=== PATIENT | male | born 2005 | race Caucasian/White ===

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

== ENCOUNTER 2024-08-23 09:45 | Outpatient (REF) | payer MEDICAID, SELFPAY ==
--- OUTSIDE RECORDS SUMMARY | 2024-08-23 10:54 | XMS_ITS | Encounter Summary ---
Author Organization [employer] Address [address] [facility] [facility] [address] [place] [address] Care Team Providers Care Mold Dumper Name Role Phone Suzan Rm MD Primary Care Provider [phone] Reason for Visit * Reason Comments Annual Exam Encounter Details Date Type Department Care Team (Latest Contact Info) Description 08/23/2024 9:15 AM EDT Office Visit [facility] [address], [place] [id number] Suzan Rm MD [address] [place] [address] Routine general medical examination at a health care facility (Primary Dx); Class 3 severe obesity without serious comorbidity with body mass index (BMI) of 40.0 to 44.9 in adult, unspecified obesity type; Dietary counseling; Exercise counseling; Pes planus of both feet; Generalized nonconvulsive epilepsy (CMS/HCC) Social History Tobacco Use Types Packs/Day Years Used Date Smoking Tobacco: Never Smokeless Tobacco: Never Depression Answer Date Recorded Patient Health Questionnaire-9 Score 6 06/26/2023 Patient Health Questionnaire-9 Score 6 06/26/2023 Last PHQ-9: Questionnaire Data Not on file 0 06/26/2023 Housing Stability Answer Date Recorded What is your housing situation today? I have neisha thorpe 06/16/[address] you li ve. Do you have problems with any of the following? None of the above 06/16/2023 Food Insecurity Answer Date Recorded Within the past 12 months, y ou worried that your food would run out before you got money to buy more: Never True 06/16/2023 Within the past 12 months,th e food you bought just didn't last and you didn't have enough money to get more: Never True Transportation Answer Date Recorded In the past 12 months, has l ack of transportation kept you from medical appts, meetings, work or from getting things needed for daily living? No 06/16/2023 Utilities Answer Date Recorded In the past 12 months, has t he electric, gas, oil or water company threatened to shut off services in your home? No 06/16/2023 Depression Answer Date Recorded Patient Health Questionnaire-2 Score 0 06/26/2023 Sex and Gender Information Value Date Recorded Sex Assigned at Male 01/20/2022 10:34 AM EDT Legal Sex Male 10:34 AM EDT Gender Identity Male 01/20/2022 10:34 AM EDT Sexual Orientation Choose not to disclose 2021 10:34 AM EDT documented as of this encounter Last Filed Vital Signs Vital Sign Reading Time Taken Comments Blood Pressure 123/77 08/23/2024 9:14 AM EDT Pulse 90 08/23/2024 9:14 AM EDT Temperature 36.7 ??C (98.1 ??F) 08/23/2024 9:14 AM ED T Respiratory Rate 20 08/23/2024 9:14 AM EDT Oxygen Saturation 98% 08/23/2024 9:14 AM EDT Inhaled Oxygen Concentration - - Weight 125 kg (275 lb) 08/23/2024 9:14 AM EDT Height 174 cm (5' 8.5 ) 08/23/2024 9:14 AM EDT Body Mass Index 41.21 08/23/2024 9:14 AM EDT documented in this encounter Progress Notes * Suzan Rm MD - 08/23/2024 9:15 AM EDT Subjective Patient ID: Art Conner is a 19 y.o. male who presents for Annual Exam. 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 He is accompanied by father who is his main caregiver. Patient lives with dad but sees his mother every morning as well. Patient'sweight has been stable. He had a recent EKG which shows seizure activities for which his Lamictal is being tapered. Dad is in contact with neurology office who explained to parent how to taper it. Hehas a follow-up with them in March. No new complaints today. Still works part-time at [employer]. Likes to play [employer] and make bracelets. Review of Systems Constitutional: Negative for activity change, chills, fever and unexpected weight change. Respiratory: Negative for cough, shortness of breath and wheezing. Cardiovascular: Negative for chest pain, palpitations and leg swelling. Gastrointestinal: Negative for abdominal pain and blood in stool. Endocrine: Negative for polydipsia and polyuria. Genitourinary: Negative for decreased urine volume, difficulty urinating, dysuria and hematuria. Musculoskeletal: Negative for arthralgias and gait problem. Skin: Negative for color change and rash. Neurological: Negative for dizziness, tremors, weakness and headaches. Hematological: Negative for adenopathy. Psychiatric/Behavioral: Negative for dysphoric mood, hallucinations, sleep disturbance and suicidalideas. The patient is not nervous/anxious. Objective BP 123/77 (BP Location: Left arm, Patient Position: Sitting, BP Cuff Size: Large adult) Pulse 90 Temp 98.1 ??F (36.7 ??C) (Oral) Resp 20 Ht 5' 8.5 (1.74 m) Wt 275 lb (125 kg) SpO2 98% BMI 41.21 kg/m?? Physical Exam Vitals reviewed. Constitutional: Appearance: He is obese. He is not ill-appearing. HENT: Head: Normocephalic. Nose: Nose normal. No congestion or rhinorrhea. Mouth/Throat: Mouth: Mucous membranes are moist. Eyes: General: No scleral icterus. Right eye: No discharge. Left eye: No discharge. Conjunctiva/sclera: Conjunctivae normal. Pupils: Pupils are equal, round, and reactive to light. Cardiovascular: Rate and Rhythm: Normal rate and regular rhythm. Heart sounds: Normal heart sounds. No murmur heard. Pulmonary: Effort: Pulmonary effort is normal. No respiratory distress. Breath sounds: Normal breath sounds. No wheezing. Abdominal: General: Bowel sounds are normal. There is distension. Palpations: Abdomen is soft. There is no mass. Tenderness: There is no abdominal tenderness. There is no guarding. Musculoskeletal: General: Normal range of motion. Right lower leg: No edema. Left lower leg: No edema. Skin: Findings: No rash. Neurological: Mental Status: He is oriented to person, place, and time. Mental status is at baseline. Psychiatric: Mood and Affect: Mood normal. Behavior: Behavior normal. Thought Content: Thought content normal. Judgment: Judgment normal. Comments: Cooperative, able to answer questions on his own Assessment/Plan Diagnoses and all orders for this visit: Routine general medical examination at a health care facility Comments: Art had his physical done today. Vaccines are up-to-date. Fasting labs ordered and I will call dad with results. Less juices and more water in diet recommended.Exercise activity like walking etc..Dental and eye care UTD. Orders: - Lipid Panel, Standard; Future - CBC auto differential; Future - Basic Metabolic Panel, Fasting; Future - Hepatic Function Panel; Future - TSH W/Reflex to FT4; Future Class 3 severe obesity without serious comorbidity with body mass index (BMI) of 40.0 to 44.9 in adult, unspecified obesity type Dietary Recommendations: Fruits, vegetables, whole grains, protein foods, and fat-free or low-fat dairy products are healthychoices. Eat different types of protein foods in your diet. This can include seafood, lean meats, poultry, beans, peas, lentils, nuts, seeds, soy products, and eggs. Limit foods and beverages higher in added sugars, saturated fat, and sodium. Exercise Recommendations: At least 150 minutes of moderate-intensity physical activity per week, or an equivalent combinationof moderate- and vigorous-intensity activity Comments: Fasting labs ordered today to rule out dyslipidemia, transaminitis etc., Orders: - Lipid Panel, Standard; Future - CBC auto differential; Future - Basic Metabolic Panel, Fasting; Future - Hepatic Function Panel; Future - TSH W/Reflex to FT4; Future - Insulin; Future Dietary counseling Exercise counseling Pes planus of both feet Comments: Has podiatry appointment in September. Dad plans to take him. Generalized nonconvulsive epilepsy (CMS/HCC) Comments: Patient sees neurology on a regular basis. Next visit is in March 2025. On same medications and being titrated down off his Lamictal. documented in this encounter Plan of Treatment Scheduled Orders Name Type Priority Associated Diagnoses Orde r Schedule Lipid Panel, Standard Lab Routine Routine general medical examination at a [facility] care facility Class 3 severe obesity without serious comorbidity with body mass index (BMI) of 40.0 to 44.9 in adult, unspecified obesity type Expected: 08/23/2024 (Approximate), Expires: 08/23/2025 CBC auto differential Lab Routine Routine general medical examination at a [facility] Class 3 severe obesity without serious comorbidity with body mass index (BMI) of 40.0 to 44.9 in adult, unspecified obesity type Expected: 08/23/2024 (Approximate), Expires: 08/23/2025 Basic Metabolic Panel, Fasting Lab Routine Routine general medical examination at a [facility] Class 3 severe obesity without serious comorbidity with body mass index (BMI) of 40.0 to 44.9 in adult, unspecified obesity type Expected: 08/23/2024 (Approximate), Expires: 08/23/2025 Hepatic Function Panel Lab Routine Routine general medical examination at a [facility] Class 3 severe obesity without serious comorbidity with body mass index (BMI) of 40.0 to 44.9 in adult, unspecified obesity type Expected: 08/23/2024 (Approximate), Expires: 08/23/2025 TSH W/Reflex to FT4 Lab Routine Routine general medical examination at a [facility] Class 3 severe obesity without serious comorbidity with body mass index (BMI) of 40.0 to 44.9 in adult, unspecified obesity type Expected: 08/23/2024 (Approximate), Expires: 08/23/2025 Insulin Lab Routine Class 3 severe obesity without serious comorbidity with body mass index (BMI) of 40.0 to 44.9 in adult, unspecified obesity type Expected: 08/23/2024 (Approximate), Expires: 08/23/2025 documented as of this encounter Visit Diagnoses Diagnosis Routine general medical examination at a health care facility- Primary Class 3 severe obesity without serious comorbidity with body mass index (BMI) of 40.0 to 44.9 in adult, unspecified obesity type Dietary counseling Dietary surveillance and counseling Exercise counseling Pes planus of both feet Generalized nonconvulsive epilepsy (CMS/HCC) documented in this encounter Additional Health Concerns Assessment Noted Time PHQ-9 Depression Total Score: 6 06/26/19 10:03 AM EDT documented as of this encounter Care Teams Mold Dumper Relationship Specialty Start Date End Date Suzan Rm MD [address] [place] [id number] PCP - General Internal Medicine 05/07/23 documented as of this encounter
[2024-08-23 14:50] LABS: MANUAL DIFF FLAG NO
[2024-08-23 14:59] LABS: Basophils Percent Auto 0.4 % (0-2); Eosinophils Absolute Auto 0.4 X10*3/uL (0.0-0.4); Eosinophils Percent Auto 5.4 % (0-4); Hemoglobin 14.4 g/dl (14.0-18.0); Imm Gran Abs Auto 0.02 X10*3/uL (0.00-0.03); Imm Gran Pct Auto 0.3 % (0.0-0.4); Lymphocytes Absolute Auto 1.9 X10*3/uL (1.2-4.9); Lymphocytes Percent Auto 28.1 % (20-40); Mean Corpuscular HGB Conc 33.5 g/dl (31.0-36.0); Mean Corpuscular Hemoglobin 27.6 pg (27.0-33.0); Mean Corpuscular Volume 82.5 fL (80.0-98.0); Monocytes Absolute Auto 0.4 X10*3/uL (0.1-1.2); Monocytes Percent Auto 5.8 % (2-11); Neutrophils Absolute Auto 4.1 x10*3/uL (2.0-8.3); Platelet Count 276 X10*3/uL (160-400); Red Blood Count 5.21 X10*6/uL (4.60-5.80); Red Cell Distribution Width 14.4 % (11.0-16.0); White Blood Count 6.9 X10*3/uL (4.8-10.8)
[2024-08-23 16:58] LABS: Alanine Aminotransferase 37 U/L (0-40); Albumin Level 4.8 g/dL (3.5-5.0); Anion Gap 12 (12-20); Aspartate Amino Transferase 38 U/L (5-37); Bilirubin Direct < 0.2 mg/dL (0.0-0.5); Bilirubin Total 0.2 mg/dL (0.0-1.0); Blood Urea Nitrogen 12 mg/dL (9-16); Calcium 9.9 mg/dL (8.4-10.2); Carbon Dioxide 28 mmol/L (22-29); Chloride 105 mmol/L (96-108); Cholesterol 174 mg/dL (<200); Estimated Glomerular Filt Rate > 60; Glucose Fasting 85 mg/dL (60-99); HDL Cholesterol 32 mg/dL (>40); LDL Cholesterol Calculated 105 mg/dL (<100); Potassium 4.3 mmol/L (3.3-5.1); Sodium 141 mmol/L (135-145); Total Protein 7.7 g/dL (6.5-8.0); Triglycerides 185 mg/dL (<150)
[2024-08-23 17:14] LABS: Alkaline Phosphatase 101 U/L (39-117)
== END 2024-08-23 09:46 | disposition home or self-care (01) ==
LOC: HO.CHCLDS 09:45
PROVIDERS: Visit Provider Pediatrics
DX: Z00.00 Encounter for general adult medical examination without abnormal findings (principal); E66.813 Obesity, class 3; Z68.41 Body mass index [BMI] 40.0-44.9, adult
CPT/HCPCS: 36415; 80048; 80061; 80076; 84443; 85025